=== PATIENT | female | born 1945 | race Caucasian/White ===

== ENCOUNTER 2022-07-23 18:26 | Emergency (ER) | payer BC ==
[~2022-07-23] VITALS: Ht 154.9 cm; Wt 63.5 kg
--- NOTE | 2022-07-23 18:26 | NUR ---
Patient to ER bed 08 to gown for evaluation. Side rails up. Report given to Ulisses HARRIS .
[2022-07-23 18:37] VITALS: BP_SYST 149
--- NOTE | 2022-07-23 18:47 | NUR ---
ASSESMENT PER FLOWSHEET. COMFORT MEASURES AND SUPPORTIVE CARE INITIATED. CONTINUOUS MONITORING INITIATED. DAUGHTER AT BS. URINE OBTAINED AND SENT. PREP FOR VIKKI HERRERA.
[2022-07-23] MEDS ORDERED: NACL 0.9% 1,000 ML IV ONE (19:00)
[2022-07-23 19:31] LABS: BASOPHILS % (AUTO) 0.5 % (0.0-2.0); EOSINOPHILS % (AUTO) 0.4 % (0.0-4.0); HEMATOCRIT 37.2 % (36-48); HEMOGLOBIN 12.6 g/dL (12.0-16.0); LYMPHOCYTES # (AUTO) 1.5 K/uL (1.0-5.5); LYMPHOCYTES % (AUTO) 25.8 % (20.5-51.5); MEAN CORPUSCULAR HEMOGLOBIN 34 pg (27-31); MEAN CORPUSCULAR HGB CONC 34 % (32-36); MEAN CORPUSCULAR VOLUME 101 fL (79.0-98.0); MONOCYTES # (AUTO) 0.6 K/uL (0.0-1.0); NEUTROPHILS # (AUTO) 3.6 K/uL (1.8-7.7); NEUTROPHILS % (AUTO) 63.3 % (40.0-70.0); PLATELET COUNT (AUTO) 189 K/uL (130-430); RED CELL DISTRIBUTION WIDTH 13.7 % (9.0-15.0); WHITE BLOOD COUNT (AUTO) 5.7 K/uL (4.8-10.8)
[2022-07-23 19:35] LABS: BILIRUBIN,URINE NEGATIVE (NEGATIVE); BLOOD, URINE NEGATIVE (NEGATIVE); CLARITY/URINE CLEAR (CLEAR); COLOR,URINE YELLOW (YELLOW); GLUCOSE,URINE NEGATIVE (NEGATIVE); KETONES,URINE NEGATIVE (NEGATIVE); LEUKOCYTE ESTERASE ,URINE TRACE (NEGATIVE); NITRITE, URINE NEGATIVE (NEGATIVE); PROTEIN URINE NEGATIVE (NEGATIVE); UROBILINOGEN,URINE 0.2 (0.2-1.0)
[2022-07-23 19:38] LABS: ANION GAP 7 (5-15); CALCIUM 9.2 mg/dL (8.4-11.0); CHLORIDE 91 mmol/L (98-107); CREATININE 0.65 mg/dL (0.55-1.30); GLUCOSE 129 mg/dL (70-99); UREA NITROGEN, BLOOD 12 mg/dL (8-21)
[2022-07-23 19:42] LABS: ALANINE AMINOTRANSFERASE 19 U/L (12-78); ALBUMIN 3.6 g/dL (3.4-4.8); ASPARTATE AMINOTRANSFERASE 17 U/L (10-37); TOTAL BILIRUBIN 0.6 mg/dL (0.0-1.0)
[2022-07-23 20:07] LABS: BACTERIA,URINE None Seen /HPF (None Seen); MUCUS,URINE None Seen /LPF (None Seen); RBC,URINE NONE SEEN /HPF (0-3)
[2022-07-23] MEDS ORDERED: cephALEXin 500 MG CAPSULE PO ONE (20:15)
[2022-07-23] MEDS ORDERED: CEPH-548 PO (20:15)
--- NOTE | 2022-07-23 20:51 | NUR ---
ALL RESULT BACK EDP REASSESS PATIENT AND D/C HOME WITH INSTRUCTION.
--- NOTE | 2022-07-23 20:55 | NUR ---
Patient given written and verbal discharge instructions and verbalizes understanding. ER MD discussed with patient the results and treatment provided. Patient in stable condition. ID arm band removed. IV catheter removed intact and dressing applied, no active bleeding. Rx of KEFLEX given. Patient educated on pain management and to follow up with PMD. Pain Scale . Opportunity for questions provided and answered. Medication side effect fact sheet provided.
== END 2022-07-23 20:52 | disposition home or self-care (01) ==
LOC: SED 18:26
DX: N39.0 Urinary tract infection, site not specified (principal); E87.1 Hypo-osmolality and hyponatremia; E87.8 Other disorders of electrolyte and fluid balance, not elsewhere classified; E11.9 Type 2 diabetes mellitus without complications; I10 Essential (primary) hypertension; R51.9 Headache, unspecified; R50.9 Fever, unspecified; Z79.899 Other long term (current) drug therapy
CPT/HCPCS: 99283; 96360; 80053; 81000; 85025; 87040; 87086; 36415; 83605; J7030